=== PATIENT | female | born 1975 | race African-American/Black ===

== ENCOUNTER 2017-03-17 09:19 | Emergency (ER) | payer MEDICAID ==
[~2017-03-17] VITALS: Ht 162.6 cm; Wt 80.0 kg
[2017-03-17] MEDS ORDERED: METO-396 PO (09:34)
[2017-03-17] MEDS ORDERED: ALBU18HF2 IH (09:35)
[2017-03-17] MEDS ORDERED: DEXAMETHASONE 10 MG/ML VIAL IM ONE (11:00)
[2017-03-17 13:00] VITALS: BP 120/73
== END 2017-03-17 13:16 | disposition home or self-care (01) ==
LOC: ER 09:47
DX: J06.9 Acute upper respiratory infection, unspecified (principal); J02.9 Acute pharyngitis, unspecified; I10 Essential (primary) hypertension; J45.909 Unspecified asthma, uncomplicated; Z86.73 Personal history of transient ischemic attack (TIA), and cerebral infarction without residual deficits
CPT/HCPCS: 71010; 81025; 87070; 87430; 96372; 99285; J1100; Z7610; A4565

== ENCOUNTER 2017-06-15 09:55 | Emergency (ER) | payer MEDICAID ==
[~2017-06-15] VITALS: Ht 157.5 cm; Wt 91.0 kg
[~2017-06-15 09:55] MED LIST: ALBU18HF2 IH; ASPI-1159 PO; BIOT1CAP3 PO; CYAN10009 PO; METO25TA6 PO; MULT-1146 PO
[2017-06-15] MEDS ORDERED: KETOROLAC 60MG/2ML VIAL IM ONE (11:15)
[2017-06-15] MEDS ORDERED: BACITRACIN ZINC OINT UDPKT TOP ONE (12:45)
[2017-06-15 12:53] VITALS: BP 129/82
== END 2017-06-15 12:58 | disposition home or self-care (01) ==
LOC: ER 09:55
DX: S61.251A Open bite of left index finger without damage to nail, initial encounter (principal); I10 Essential (primary) hypertension; J45.909 Unspecified asthma, uncomplicated; Z79.82 Long term (current) use of aspirin; Z86.73 Personal history of transient ischemic attack (TIA), and cerebral infarction without residual deficits; Z98.890 Other specified postprocedural states; Y04.1XXA Assault by human bite, initial encounter; Y93.89 Activity, other specified; Y99.8 Other external cause status; Y92.89 Other specified places as the place of occurrence of the external cause
CPT/HCPCS: 73130; 96372; 99284; J1885

== ENCOUNTER 2021-06-16 06:20 | Emergency (ER) | payer MEDICAID ==
[~2021-06-16] VITALS: Ht 157.5 cm; Wt 86.0 kg
[~2021-06-16 06:20] MED LIST changes: -ASPI-1159 PO; +ASPI-1497 PO; +CYAN-50 PO; -CYAN10009 PO
[2021-06-16 06:23] VITALS: BP 148/86
[2021-06-16] MEDS ORDERED: ACETAMINOPHEN 325MG TABLET PO ONE (06:45)
[2021-06-16] MEDS ORDERED: ACET-2708 MT (07:49)
[2021-06-16] MEDS ORDERED: BACL-141 MT (08:02)
== END 2021-06-16 08:15 | disposition home or self-care (01) ==
LOC: ER 06:20
DX: S80.01XA Contusion of right knee, initial encounter (principal); M23.8X1 Other internal derangements of right knee; M25.561 Pain in right knee; J45.909 Unspecified asthma, uncomplicated; I10 Essential (primary) hypertension; W01.0XXA Fall on same level from slipping, tripping and stumbling without subsequent striking against object, initial encounter; Y93.F1 Activity, caregiving, bathing; Y92.89 Other specified places as the place of occurrence of the external cause; Z79.82 Long term (current) use of aspirin; Z86.73 Personal history of transient ischemic attack (TIA), and cerebral infarction without residual deficits; Z98.890 Other specified postprocedural states
CPT/HCPCS: 73560; 73590; 73610; 99284

== ENCOUNTER 2022-04-19 08:51 | Emergency (ER) | payer MEDICAID, OTHER ==
[~2022-04-19] VITALS: Ht 165.1 cm; Wt 82.0 kg
[~2022-04-19 08:51] MED LIST changes: +ACET-2708 MT; +BACL-141 MT
[2022-04-19] MEDS ORDERED: ACETAMINOPHEN 325MG TABLET PO ONE (11:00)
[2022-04-19] MEDS ORDERED: IBUP-2028 MT (11:09)
[2022-04-19] MEDS ORDERED: IBUPROFEN 400MG TABLET PO ONE (11:15)
[2022-04-19 11:39] VITALS: BP 142/89
== END 2022-04-19 11:40 | disposition home or self-care (01) ==
LOC: ER 08:51
DX: M54.6 Pain in thoracic spine (principal); I10 Essential (primary) hypertension; J45.909 Unspecified asthma, uncomplicated; V43.52XA Car driver injured in collision with other type car in traffic accident, initial encounter; Y93.89 Activity, other specified; Y92.89 Other specified places as the place of occurrence of the external cause; Y99.8 Other external cause status
CPT/HCPCS: 81025; 99283

== ENCOUNTER 2022-12-13 14:34 | Emergency (ER) | payer OTHER ==
[~2022-12-13] VITALS: Ht 157.5 cm; Wt 86.1 kg
[~2022-12-13 14:34] MED LIST changes: +IBUP-2028 MT
[2022-12-13 15:16] VITALS: O2SAT 99
[2022-12-13] MEDS: KETOROLAC 30MG/ML VIAL IM ONE (16:00)
[2022-12-13] MEDS ORDERED: NAPR-1176 MT (16:55)
[2022-12-13] MEDS ORDERED: CYCL10TA21 MT (16:55)
[2022-12-13 19:31] VITALS: BP 134/78; PULSE 109; RESP 18; TEMP 99
== END 2022-12-13 19:32 | disposition home or self-care (01) ==
LOC: ER 14:34
DX: M25.532 Pain in left wrist (principal); I10 Essential (primary) hypertension; J45.909 Unspecified asthma, uncomplicated; Z86.73 Personal history of transient ischemic attack (TIA), and cerebral infarction without residual deficits; Z98.890 Other specified postprocedural states
CPT/HCPCS: 29125; 73110; 99283